=== PATIENT | female | born 1970 | race Hispanic/Latino ===

== ENCOUNTER → 2024-11-15 | Day surgery (SDC) | payer OTHER ==
[2024-11-14 09:45] LABS: BASOPHILS # (AUTO) 0.1 (0.0-0.1); BASOPHILS % 1.3 % (0.0-1.0); EOSINOPHILS # (AUTO) 0.3 (0.0-0.4); EOSINOPHILS % 4.3 % (0.0-6.0); HEMATOCRIT 38.1 % (34.2-44.1); HEMOGLOBIN 12.1 g/dL (12.0-16.0); LYMPHOCYTES # (AUTO) 1.8 (1.0-3.2); LYMPHOCYTES % 29.3 % (18.0-39.1); MEAN CORPUSCULAR HEMOGLOBIN 28.6 pg (28-32); MEAN CORPUSCULAR HGB CONC 31.8 g/dL (31-35); MEAN CORPUSCULAR VOLUME 90.1 fL (81-99); MONOCYTES # (AUTO) 0.6 (0.2-0.8); MONOCYTES % 10.3 % (4.4-11.3); NEUTROPHILS # (AUTO) 3.3 (2.1-6.9); NEUTROPHILS % 54.5 % (38.7-80.0); PLATELET COUNT 331 x10e3/uL (140-360); RED BLOOD COUNT 4.23 x10e6/uL (3.6-5.1); RED CELL DISTRIBUTION WIDTH 13.2 % (11.7-14.4)
[2024-11-14 10:26] LABS: ANION GAP 11.9 mmol/L (8-16); CALCIUM 9.1 mg/dL (8.4-10.2); CREATININE, SERUM 0.79 mg/dL (0.57-1.11); POTASSIUM 3.9 mmol/L (3.5-5.1)
[~2024-11-15] MED LIST: ACETAMINOPHEN 1000 MG/100 ML 100 ML IV ONE; CELEBREX200 MG PO; DEXAMETHASONE SOD PHOS INJ 4 MG/ML SDV ONE; FAMOTIDINE 20 MG/2 ML VIAL IV ONE; FAMOTIDINE40 MG PO; FENOFIBRATE145 MG PO; FENTANYL CITRATE/PF 100MCG/2 ML INJ ONE; KETOROLAC TROMETHAMINE 30 MG/ML VIAL ONE; LIDOCAINE HCL 2% LOCAL INJ 5 ML SDV VIAL INJ ONE; LISINOPRIL20 MG PO; MIDAZOLAM HCL 2 MG/2 ML VIAL ONE; ONDANSETRON HCL INJ 2MG/ML 2ML 2 MG/ML VIAL ONE; PROPOFOL IV EMULSION 10 MG/ML 20 ML VIAL ONE; ROCURONIUM BROMIDE 0 ML IV ONE; ROCURONIUM BROMIDE 1 ML IV ONE; SEVOFLURANE INHAL SOLN 250 ML PEN BTL ONE; SUGAMMADEX SODIUM 200 MG/2 ML VIAL IV ONE
[2024-11-15] MEDS: LACTATED RINGER'S 1,000 ML ONE (07:39)
[2024-11-15] MEDS: HYDROCODONE/APAP 7.5MG-325MG 1 EA TAB ONE (13:00)
[2024-11-15 13:30] VITALS: BP 121/84; PULSE 62; RESP 16; O2SAT 99
== END | disposition home or self-care (01) ==
LOC: OR 06:54
PROVIDERS: ATTEND Surgery
DX: K43.6 Other and unspecified ventral hernia with obstruction, without gangrene (principal); I10 Essential (primary) hypertension; E66.01 Morbid (severe) obesity due to excess calories; K28.9 Gastrojejunal ulcer, unspecified as acute or chronic, without hemorrhage or perforation; M06.9 Rheumatoid arthritis, unspecified; Z01.810 Encounter for preprocedural cardiovascular examination; Z01.812 Encounter for preprocedural laboratory examination; Z79.899 Other long term (current) drug therapy; Z87.891 Personal history of nicotine dependence
CPT/HCPCS: 36415; 49594; 80048; 85025; 93005; C1781; J0131; J0690; J1100; J1885; J2003; J2250; J2405; J2704; J3010; J7121